=== PATIENT | female | born 1985 | race Caucasian/White ===

== ENCOUNTER 2017-04-19 12:10 | Outpatient (CLI) | payer BC ==
--- NOTE | 2017-04-19 13:51 | CT ---
CT ABDOMEN AND PELVIS WITH IV CONTRAST: History: Right abdominal pain. FINDINGS: No comparison. The lung bases are clear. The liver, spleen, kidneys, adrenal glands and pancreas have a normal CT appearance. Urinary bladder is incompletely distended. Phleboliths are apparent within t he pelvis. Lack of oral contrast limits evaluation of the bowel. There is no evidence of obstruction or inflamma tion. No free fluid is apparent. IMPRESSION: No significant abnormalities are demonstrated. POS: [facility]
== END 2017-04-19 12:11 | disposition home or self-care (01) ==
LOC: CT 12:10
PROVIDERS: ATTEND Family Medicine
DX: K75.0 Abscess of liver (principal)
CPT/HCPCS: 74177

== ENCOUNTER 2019-09-19 09:23 | Outpatient (CLI) | payer OTHER ==
--- NOTE | 2019-09-19 12:19 | MRI ---
MRI LUMBAR SPINE WITHOUT CONTRAST: INDICATION: Low back pain. Radiation to right lower extremity and right hip. FINDINGS: Lumbar vertebrae maintain normal height and alignment. Vertebral body signal is normal. There are degenerative disk and end plate changes at L5-S1. Mild loss of disk space at L5-S1. There is a large disk herniation at L5-S1. An extruded disk at L5-S1 measures 1.3 cm AP dimension in the axial plane. This disk extrusion is central and to the right and compresses the thecal sac. It displaces the traversing right S1 nerve root and results in moderate central canal stenosis. At L4-5: Minimal disk bulge without central canal or foraminal stenosis. At L3-4: Minimal disk bulge without central canal or foraminal stenosis. At L2-3: Mild disk bulge flattens the thecal sac. No significant central canal or foraminal stenosi s. At L1-2: No significant disk abnormality. No central canal or foraminal stenosis. At T12-L1: No abnormality. IMPRESSION: Large disk herniation at L5-S1 centrally and to the right compressing the thecal sac and displacing t he right S1 nerve root as described above. POS: [facility]
== END 2019-09-19 09:24 | disposition home or self-care (01) ==
LOC: BICMRI 09:23
PROVIDERS: ATTEND Family Medicine
DX: M54.5 Low back pain (principal); M51.27 Other intervertebral disc displacement, lumbosacral region
CPT/HCPCS: 72148

== ENCOUNTER 2020-06-22 14:40 | Outpatient (CLI) | payer BC ==
[2020-06-22 16:46] LABS: Anion Gap 15 mmol/L (10-20); BUN (Urea Nitrogen) 12 mg/dL (7.0-18.7); Calc. Creatinine Clearance 0 mL/min (70-130); Calcium 9.6 mg/dL (7.8-10.44); Carbon Dioxide 28 mmol/L (22-29); Chloride 101 mmol/L (98-107); Glucose 89 mg/dL (70-105); Hemoglobin 14.2 g/dL (12.0-15.5); Mean Corpuscular HGB CONC 33.3 g/dL (32.0-36.0); Mean Corpuscular Hemoglobin 30.6 pg (27.0-33.0); Mean Corpuscular Volume 91.8 fl (81.6-98.3); Mean Platelet Volume 10.1 fl (7.4-10.4); Platelet Count 306 10x3/uL (150-450); Potassium 4.7 mmol/L (3.5-5.1); RBC Distribution Width 11.9 % (11.5-14.5); Red Blood Cell (RBC) Count 4.64 10x6/uL (3.90-5.03); Sodium 139 mmol/L (136-145); White Blood Cell (WBC) Count 9.2 10x3/uL (3.5-10.5)
[2020-06-22 17:07] LABS: PTT 30.8 sec (22.0-33.0); Prothrombin Time 10.6 sec (9.5-12.1)
[2020-06-23 04:50] LABS: SARS-CoV-2 PCR by NAA Not Detected (NotDetected)
== END 2020-06-22 14:41 | disposition home or self-care (01) ==
LOC: LABBT 14:40
PROVIDERS: ATTEND Surgery
DX: Z01.818 Encounter for other preprocedural examination (principal); M51.16 Intervertebral disc disorders with radiculopathy, lumbar region; Z20.822 Contact with and (suspected) exposure to COVID-19
CPT/HCPCS: 80048; 85027; 85610; 85730; 87635; 93005; 93010; U0003; U0005

== ENCOUNTER 2020-06-25 09:14 | Day surgery (SDC) | payer BC ==
[2020-06-25] MEDS ORDERED: HYDROmorphone 0.5 MG/0.5 ML SYRINGE ONE (10:44)
[2020-06-25] MEDS ORDERED: Scopolamine 1.5 mg/72 hour Patch ONE (11:19)
[2020-06-25] MEDS ORDERED: Famotidine/PF 20 mg/2ml Vial ONE (11:19)
[2020-06-25] MEDS ORDERED: Ondansetron PF 4 MG/2 ML Vial ONE ×2 (11:20→12:35)
[2020-06-25] MEDS ORDERED: PROPOFOL 200 MG/20 ML VIAL ONE (12:35)
[2020-06-25] MEDS ORDERED: Lidocaine 1% PF 5 ML VIAL ONE (12:35)
[2020-06-25] MEDS ORDERED: Rocuronium Bromide 10 MG/ML (10ML VIAL) ONE (12:35)
[2020-06-25] MEDS ORDERED: Glycopyrrolate 0.2 MG/ML 5 ML SYRINGE ONE (12:35)
[2020-06-25] MEDS ORDERED: Dexamethasone 20 MG/5 ML VIAL ONE (12:35)
[2020-06-25] MEDS ORDERED: Thrombin 5000 UNITS/5 ML VIAL ONE (12:43)
[2020-06-25] MEDS ORDERED: Fentanyl 100 MCG/2 ML VIAL ONE ×4 (12:52→15:35)
[2020-06-25] MEDS ORDERED: Midazolam HCl 2 mg/2 ml Vial ONE (12:52)
[2020-06-25] MEDS ORDERED: HYDROcodone/Acetaminophen 7.5/325 mg Tablet PO PRN (13:34)
[2020-06-25] MEDS ORDERED: Acetaminophen 325 MG TAB PO PRN (13:34)
[2020-06-25] MEDS ORDERED: Acetaminophen/Codeine 30-300mg Tablet PO PRN (13:34)
[2020-06-25] MEDS ORDERED: traMADol HCl 50 MG TAB PO PRN (13:34)
[2020-06-25] MEDS ORDERED: Bisacodyl 10 MG SUPP PR PRN (13:34)
[2020-06-25] MEDS ORDERED: Mag-Al 1200 mg/1200 mg/30 ML UDCUP PO PRN (13:34)
[2020-06-25] MEDS ORDERED: Milk Of Magnesia 30 ML UDCUP PO PRN (13:34)
[2020-06-25] MEDS ORDERED: Ondansetron PF 4 MG/2 ML Vial IVP PRN (13:34)
[2020-06-25] MEDS ORDERED: Gabapentin 300 MG CAP PO PRN (13:41)
[2020-06-25] MEDS ORDERED: SUGAMMADEX SODIUM 200 MG/2 ML VIAL ONE (14:42)
[2020-06-25] MEDS ORDERED: Promethazine HCl 25 MG/ML VIAL IM PRN (15:06)
[2020-06-25] MEDS ORDERED: Ondansetron HCl/PF 4 MG/2 ML Vial IVP PRN (15:06)
[2020-06-25] MEDS ORDERED: Meperidine HCl/PF 25 MG/ML VIAL SLOW IVP PRN (15:06)
[2020-06-25] MEDS ORDERED: Promethazine HCl 25 MG/ML VIAL SLOW IVP PRN (15:06)
[2020-06-25] MEDS ORDERED: Promethazine HCl 25 MG/ML VIAL ONE (15:45)
[2020-06-25 16:01] VITALS: BMI 27.1
[2020-06-25] MEDS: Sodium Chloride 0.9% 1,000 ML IV SCH (16:22)
[2020-06-25] MEDS ORDERED: Morphine 2 MG/ML VIAL ONE ×2 (16:39→17:46)
[2020-06-25] MEDS: Morphine 2 MG/ML VIAL SLOW IVP PRN ×3 (17:48→20:46)
[2020-06-25] MEDS: CEFAZOLIN 2 GM in Premix Bag 1 BAG IVPB SCH (19:50)
[2020-06-25] MEDS: tiZANidine HCl 4 MG TAB PO PRN (20:46)
[2020-06-26] MEDS: Sodium Chloride 0.9% 1,000 ML IV SCH (02:23)
[2020-06-26] MEDS: CEFAZOLIN 2 GM in Premix Bag 1 BAG IVPB SCH (03:42)
[2020-06-26] MEDS: tiZANidine HCl 4 MG TAB PO PRN (05:33)
[2020-06-26 11:50] VITALS: BP 107/73; TEMP 98
== END 2020-06-26 13:34 | disposition home or self-care (01) ==
LOC: SDC 09:14 → SURG A 13:34 → SDC 06-26 13:34
PROVIDERS: ATTEND Surgery
PROC: 01NB0ZZ Release Lumbar Nerve, Open Approach (ICD-10-PCS; principal; 2020-06-26)
DX: M51.16 Intervertebral disc disorders with radiculopathy, lumbar region (principal); Z79.899 Other long term (current) drug therapy
CPT/HCPCS: 76000; J0690; J1100; J1170; J2250; J2270; J2405; J2550; J2704; J3010; J3370; S0028

== ENCOUNTER 2023-09-18 11:01 | Outpatient (CLI) | payer BC | END 2023-09-18 11:02 | disposition home or self-care (01) | LOC: SCSMRI 11:01 | PROVIDERS: ATTEND Family Medicine | DX: M25.561 Pain in right knee (principal); S83.251A Bucket-handle tear of lateral meniscus, current injury, right knee, initial encounter; S83.281A Other tear of lateral meniscus, current injury, right knee, initial encounter ==